=== PATIENT | male | born 1980 | race Caucasian/White ===

== ENCOUNTER 2022-07-19 08:03 | Day surgery (SDC) | payer OTHER ==
--- NOTE | 2022-07-18 05:45 | EKG ---
Test Date: 2022-07-17 Test Time: 09:15:13 Clinical Data Management Manager: NILAM MEASUREMENT RESULTS: Intervals: Rate: 63 WY: 164 QRSD: 90 QT: 416 QTc: 425 Garrett: P: 48 WY: 164 QRS: 40 T: 20 INTERPRETIVE STATEMENTS: Normal sinus rhythm Normal ECG No previous ECG available for comparison Electronically Signed On 07-18-22 05:44:41 [employer] by Rayshawn Byrd
[2022-07-19] MEDS ORDERED: propofoL 200 MG/20 ML VIAL IV ONE (08:28)
[2022-07-19] MEDS ORDERED: LIDOCAINE 2% MPF 5 ML VIAL ONE (08:29)
[2022-07-19] MEDS ORDERED: ROCURONIUM 50 MG/5 ML VIAL IV ONE (08:29)
[2022-07-19] MEDS ORDERED: dexAMETHasone 10 MG/ML VIAL ONE (08:29)
[2022-07-19] MEDS ORDERED: MIDAZOLAM HCL 2 MG/2 ML INJ ONE (08:29)
[2022-07-19] MEDS ORDERED: ONDANSETRON 4 MG/2 ML VIAL ONE (08:29)
[2022-07-19] MEDS ORDERED: FENTANYL CITR 100 MCG/2 ML ONE (08:29)
[2022-07-19] MEDS ORDERED: FENTANYL CITR 250 MCG/5 ML ONE (08:30)
[2022-07-19] MEDS: Ringers Lactate 1,000 ML IV ONE ×2 (08:30→08:33)
[2022-07-19] MEDS: CEFAZOLIN SODIUM 2 GM/VIAL ONE ×3 (08:31→09:35)
[2022-07-19] MEDS: BUPIVACAINE 0.25% PF 10 ML VIAL ONE ×3 (08:32→09:38)
[2022-07-19] MEDS ORDERED: CELECOXIB 100 MG CAPSULE ONE (08:41)
[2022-07-19] MEDS ORDERED: ACETAMINOPHEN 500 MG TAB ONE (08:41)
[2022-07-19] MEDS ORDERED: KETOROLAC 30 MG/ML INJ ONE (10:28)
--- NOTE | 2022-07-19 10:28 | P.OP ---
Portfolio Architect: RUBENS VARELA Preoperative diagnosis: Umbilical Hernia Postoperative diagnosis: Umbilical Hernia Primary procedure: Laparoscopic Umbilical Hernia Repair with mesh Anesthesia: GETA+ Local Estimated blood loss: <5cc Specimen: hernia contents Findings: ~ 1cm umbilical hernia with adipose Complications: None Implants: Bard Ventralite ST 11.4cm Round mesh, sorbafix, reliatack Transferred to: Recovery Room Condition: Good
[2022-07-19 13:47] VITALS: BP 128/85; TEMP 96.4; O2SAT 92
--- NOTE | 2022-07-19 18:42 | OP ---
Date of Procedure: 07/19/2022 Surgeon: Kodak Mcclellan MD, Preoperative Diagnosis: Umbilical hernia. Postoperative Diagnosis: Umbilical hernia. Procedure: Laparoscopic umbilical hernia repair with mesh. Anesthesia: General endotracheal plus local with 0.25% Marcaine. Estimated Blood Loss: Less than 5 cc. Specimen: Hernia contents. Findings: Approximately 1 cm umbilical hernia with adipose tissue contained entrapped. Complications: None. Implants: Bard Ventralight ST mesh with Echo Positioning System 11.4 cm round mesh. SorbaFix absorb able fixation tacks, 30 used and ReliaTack absorbable fixation tacks, 30 utilized; total of 60 tacks used. Disposition: The patient was transferred to recovery room in good condition. Procedure In Detail: After informed consent was obtained, patient was brought to the operating room and prepped and draped in the usual sterile fashion. After adequate anesthesia was achieved, the are a in the left upper quadrant was anesthetized with 0.25% Marcaine, and sharply incised. A 5 mm optic al trocar was introduced into the abdomen without evidence of any complication. Insufflation was obt ained to 15 mmHg at this time and there was no injury to vital structures upon entry into the abdomen . Additional trocars were placed in the left lower quadrant and this is a 12 mm trocar placed under direct visualization without evidence of any complication. A left mid abdominal trocar is placed und er direct visualization without evidence of any complication. I then used a LigaSure device to take down the adipose tissue, which was contained within the umbilical hernia. This was cleaned off to al low for appropriate landing zone. There was general weakness to the anterior abdominal wall in this area. After the adipose tissue was removed from the preperitoneal space and the hernia contents, it was placed in Endo Catch bag and removed through the umbilical trocar and sent off for pathologic exa mination. I then sized 11.[address] mesh with Echo Positioning System in the center p ortion of the hernia defect and secured it to the anterior abdominal wall using a single crown of Sor baFix absorbable fixation tacks. I then used a second crown of combination of SorbaFix fixation tack s as well as the ReliaTack absorbable fixation tacks to the anterior abdominal wall with good apposit ion of the mesh to the anterior bowel wall. No hemostatic measures were required. The 12 mm trocar site was then closed using a Juventino-Kimberley suture passer with an 0 Vicryl in an interrupted fashion with good approximation of tissues. The remaining gas in the abdomen was removed by desufflation un lorie direct visualization without evidence of any complication and all trocars were removed. All skin incisions were copiously irrigated and closed with 4-0 Monocryl in a running fashion. Dermabond was placed over top. The patient tolerated the procedure without evidence of any complication and trans ferred back to postanesthesia care unit in good condition. All counts were correct at the end of the case. XIOMY/ARTURO Voice ID: [id number] Report ID: [id number]
== END 2022-07-19 12:35 | disposition home or self-care (01) ==
LOC: OR 08:03
PROVIDERS: ATTEND Surgery
PROC: 0WUF4JZ Supplement Abdominal Wall with Synthetic Substitute, Percutaneous Endoscopic Approach (ICD-10-PCS; principal; 2022-07-19 09:30)
DX: K42.9 Umbilical hernia without obstruction or gangrene (principal); R10.10 Upper abdominal pain, unspecified
CPT/HCPCS: 93005; 80048; 36415; 88302; 49652; J2704; J2001; J2250; J3010; J1100; J7120; J2405; C1781